=== PATIENT | female | born 1995 | race Caucasian/White ===

== ENCOUNTER 2017-09-08 16:13 | Emergency (ER) | payer BC ==
--- OUTSIDE RECORDS SUMMARY | 2017-09-08 16:34 | XMS REPORT ---
:1995 External Reference #:[id number] Author Organization [facility] Address [address] [place] [address] Phone [phone] Care Team Providers Name Role Phone Mariia Antony M.D. 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 [address] [place] [address] Problems Date Description Provider Status Onset: 08/24/2017 Other specified disorders of Eustachian Hill Valdes MD Active tube, bilateral Onset: 08/24/2017 Acute otitis externa Hill Valdes MD Active Family History Date Family Member(s) Problem(s) Comments General No Current Problems Social History Type Date Description Comments Occupation Student Cigarette Use Never Smoked Cigarettes Cigars Never Smoked Cigars Pipe Never Smoked A Pipe Smokeless Tobacco Never Used Smokeless Tobacco ETOH Use Currently rarely consumes alcohol Allergies, Adverse Reactions, Alerts Date Description Reaction Status Severity Comments 08/24/2017 NKDA active Medications Medication Date Status Form Strength Qnty SIG Indications Ordering Provider Ventolin HFA Active Aerosol 108(90Base) Arpan 0 mcg/Act Mariia Scanlon Dulera Active Aerosol 100-5mcg/Act Unknown 0 Depo-Provera Active Unknown 0 Mupirocin Hx Ointment 2% Unknown 0 - 7 Tretinoin Hx Cream 0.05% Unknown 0 - 7 Pulmicort Hx Aerosol 180mcg/Act Unknown Flexhaler 0 - 7 Vital Signs Date Vital Result Comment 08/24/2017 BP Systolic 129 mmHg BP Diastolic 79 mmHg Heart Rate 75 /min Respiratory Rate 16 /min Weight 95.00 lb Weight in kg's 43.092 Height 61 inches 5'1" Height in cm's 154.9 cm BMI (Body Mass Index) 17.9 kg/m2 Results Description No Information Procedures Description No Information Encounters Type Date Location Provider CPT E/M Dx Office Visit 08/24/2017 9:00a [place] 09/10/07 [place] [address] H60.543 H69.83 Plan of Care 08/24/2017 - Hill Valdes MDH60.543 Acute eczematoid otitis externa, bilateralComments:Patient was advised to use some hydrocortisone ointment to the ear twice a dayH69.83 Other specified disorders of Eustachian tube, bilateral
[2017-09-08 18:24] VITALS: BP 103/64
[2017-09-08] MEDS ORDERED: Amoxicillin/Clavulanate TAB* 875 MG PO ONE (18:32)
--- NOTE | 2017-09-08 18:32 | UC ---
Throat Pain/Nasal Steve HPI - History of Current Complaint Chief Complaint: UCGeneralIllness Stated Complaint: STEVE. Time Seen by Provider: 09/08/17 18:24 Hx Last Menstrual Period: DEPO - Allergies/Home Medications Allergies/Adverse Reactions: Allergies Allergy/AdvReac Type Severity Reaction Status Date / Time No Known Allergies Allergy Verified 06/17/16 12:16 Home Medications: Home Medications Diphenhydramine HCl [Benadryl Allergy 25 MG CAP] 25 mg PO DAILY PRN 09/08/17 [ History Confirmed 09/08/17] Ibuprofen [Ibuprofen 200 MG] 200 mg PO Q6H PRN 09/08/17 [History Confirmed 09/08] Mometasone/Formoter 200/5 MDI* [Dulera 200/5 MDI*] 2 puff INH BID 09/08/17 [ History Confirmed 09/08/17] PMH/Surg Hx/FS Hx/Imm Hx - Surgical History Surgical History: Yes Surgery Procedure, Year, and Place: TONSILLECTOMY - Family History Known Family History: Positive: None Negative: Cardiac Disease, Hypertension, Diabetes - Social History Alcohol Use: Rare Substance Use Type: None Smoking Status (MU): Never Smoked Tobacco Physical Exam Vital Signs: Initial Vital Signs Temp 98 F 09/08/17 18:21 Pulse 70 09/08/17 18:21 Resp 16 09/08/17 18:21 BP 103/64 09/08/17 18:21 Pulse Ox 100 09/08/17 18:21 Discharge - Discharge Plan Referrals: No Primary Care Phys,NOPCP [Primary Care Provider] -
== END 2017-09-08 18:43 | disposition home or self-care (01) ==
LOC: UCCORT 16:13
DX: R07.0 Pain in throat (principal); R09.81 Nasal congestion
CPT/HCPCS: 99212; A9270-GY; G0463

== ENCOUNTER 2018-05-26 12:53 | Emergency (ER) | payer BC ==
[2018-05-26 14:14] VITALS: BP 110/73
--- NOTE | 2018-05-26 14:38 | UC ---
Respiratory Complaint HPI - HPI Summary HPI Summary: ST, nasal congestion, chills, malaise, and painful cough starting 3 nights ago. Noticed swelling in uvula the first morning she was sick. Now coughing a lot, has started her oral prednisone to prevent asthma complications. Also taking albuterol and dulera. 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 No longer being treated. - History of Current Complaint Chief Complaint: UCRespiratory Stated Complaint: URI SYMPTOMS Time Seen by Provider: 05/26/18 13:55 Hx Obtained From: Patient, Family/Er Registrar Hx Last Menstrual Period: Depo-Provera ?: No Onset/Duration: Gradual Onset, Lasting Days Timing: Constant Severity Initially: Mild Severity Currently: Moderate Pain Intensity: 0 Character: Cough: Productive Aggravating Factors: Deep Breaths, Recumbent Position Alleviating Factors: Bronchodilator Associated Signs And Symptoms: Positive: Chills, Wheezing, URI, Nasal Congestion. Negative: Fever - Risk Factors Pulmonary Embolism Risk Factors: Negative Cardiac Risk Factors: Negative - Allergies/Home Medications Allergies/Adverse Reactions: Allergies Allergy/AdvReac Type Severity Reaction Status Date / Time No Known Allergies Allergy Verified 05/26/18 14:03 Home Medications: Home Medications Albuterol 2.5MG/3ML (0.083%)* [Ventolin 2.5 MG/3 ML NEB.[place]*] 2.5 mg INH Q6H PRN 05/26/18 [History Confirmed 05/26/18] Albuterol HFA INHALER* [Ventolin HFA Inhaler*] 1 - 2 puff INH Q4H PRN 05/26/18 [ History Confirmed 05/26/18] Escitalopram (NF) [Lexapro 10 mg (NF)] 10 mg PO DAILY 05/26/18 [History Confirmed 05/26/18] Ibuprofen TAB* [Advil TAB*] 200 - 400 mg PO Q6H PRN 05/26/18 [History Confirmed 05/26/18] Pseudoephedrine TAB* [Sudafed TAB*] 60 mg PO Q6H PRN 05/26/18 [History Confirmed 05/26/18] diPHENhydraMINE PO* [Benadryl PO 25 MG TAB*] 25 mg PO Q6H PRN 05/26/18 [History Confirmed 05/26/18] medroxyPROGESTERone ACETATE* [DEPO-Provera*] 150 mg IM SEE INSTRUCTIONS [History Confirmed 05/26/18] predniSONE TAB* [Deltasone 20 MG TAB*] 20 mg PO DAILY 05/26/18 [History Confirmed 05/26/18] PMH/Surg Hx/FS Hx/Imm Hx - Additional Past Medical History Additional PMH: 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 Respiratory History: Asthma Psychological History: Anxiety - Surgical History Surgical History: Yes Surgery Procedure, Year, and Place: T&A, MD Gloria; Ear Tubes x 3 prior to 2001 - Family History Known Family History: Positive: None Negative: Cardiac Disease, Hypertension, Diabetes - Social History 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, 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 Lives: With Family Alcohol Use: Rare Substance Use Type: Marijuana Substance Use Comment - Amount & Last Used: Rarely & "Fior" Smoking Status (MU): Never Smoked Tobacco Review of Systems Constitutional: Chills, Fatigue Skin: Negative Eyes: Negative ENT: Sore Throat, Nasal Discharge Respiratory: Cough Cardiovascular: Negative Gastrointestinal: Negative Genitourinary: Negative Motor: Negative Neurovascular: Negative Musculoskeletal: Negative Neurological: Negative Psychological: Negative Is Patient Immunocompromised?: No All Other Systems Reviewed And Are Negative: Yes Physical Exam Triage Information Reviewed: Yes Appearance: No Pain Distress, Thin Vital Signs: Initial Vital Signs Temp 98.7 F 05/26/18 13:59 Pulse 104 05/26/18 13:59 Resp 16 05/26/18 13:59 BP 110/73 05/26/18 13:59 Pulse Ox 100 05/26/18 13:59 Vital Signs Reviewed: Yes Eye Exam: Normal Eyes: Positive: Conjunctiva Clear ENT: Positive: Pharynx normal, Nasal congestion, Nasal drainage, TMs normal. Negative: TM bulging Dental Exam: Normal Neck exam: Normal Neck: Positive: Supple, Nontender, No Lymphadenopathy Respiratory: Positive: Chest non-tender, Normal breath sounds, No respiratory distress Cardiovascular: Positive: No Murmur, Pulses Normal, Tachycardia Musculoskeletal Exam: Normal Neurological Exam: Normal Neurological: Positive: Alert Psychological Exam: Normal Skin Exam: Normal UC Diagnostic Evaluation - Laboratory O2 Sat by Pulse Oximetry: 100 Respiratory Course/Dx - Differential Dx/Diagnosis Provider Diagnoses: URI, likely viral Discharge - Sign-Out/Discharge Documenting (check all that apply): Patient Departure All imaging exams completed and their final reports reviewed: No Studies - Discharge Plan Condition: Stable Disposition: HOME Prescriptions: Benzonatate 200 mg PO TID PRN #30 capsule PRN Reason: cough Patient Education Materials: Upper Respiratory Infection (ED), Asthma (DC) Forms: *Work Release Referrals: Mariia Antony MD [Primary Care Provider] - If Needed Additional Instructions: UPPER RESPIRATORY ILLNESS: You have a viral infection of the respiratory passages -- a "cold." This common infection causes nasal congestion, drainage, and often sore throat and cough. It is highly contagious. The disease usually worsens for 3-5 days, then resolves after about 10 to 14 days. It is very common to have some residual cough or nasal congestion for another week or so. There is no "cure" for the viral infection -- it must run its course. If there is a complication, such as bacterial infection in the nose, sinuses, middle ear, or bronchial tubes, antibiotics may be required. The antibiotics won't affect the virus. Drink plenty of fluids. A humidifier may help. An expectorant medication or decongestant may make you more comfortable. Use acetaminophen or ibuprofen for fever or aches. Please call or return if you develop difficulty breathing, fever over 100F , sudden worsening, or failure to improve at all for 4 or more days. [id number] MEDICINES ARE ONLY INTENDED TO GIVE TEMPORARY RELIEF. YOU SHOULD STOP TAKING ANY COUGH OR COLD PREPARATION THAT FAILS TO MAKE YOU FEEL AT LEAST A LITTLE BIT BETTER. - Billing Disposition and Condition Condition: STABLE Disposition: Home
== END 2018-05-26 14:39 | disposition home or self-care (01) ==
LOC: UCCORT 12:53
DX: J06.9 Acute upper respiratory infection, unspecified (principal)
CPT/HCPCS: 99212; G0463

== ENCOUNTER 2018-09-07 20:43 | Emergency (ER) | payer BC ==
--- OUTSIDE RECORDS SUMMARY | 2018-09-07 20:49 | XMS REPORT | Continuity of Care Document ---
:1995 External Reference #:[id number] Author Name Helen LisetdangJORDON Address [address] [place] [address] Care Team Providers Name Role Phone Marv Curiel M.D. Care Team Information Psychiatric Lpn Unavailable Marv Curiel M.D. Primary Care Physician Unavailable Payers Type Date Identification Numbers Payment Provider Subscriber Effective: Policy Number: [id number] [facility]/ James Dennis 2003 Group Name: [employer] [address] [address] PayID: [id number] [place] [address] Advance Directives Description No Information Available Problems Date Description Provider Status Onset: 05/10/2017 Uncomplicated moderate persistent Helen JORDON Malave Active asthma Onset: 08/11/2016 Uncomplicated moderate persistent Mariia Antony M.D. Active asthma Onset: 08/11/2016 Cough Mariia Antony M.D. Active Onset: 08/11/2016 Allergic rhinitis Mariia Antony M.D. 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 Home Environment Mattress is encased in an allergy proof case Home Environment Regular Mattress Home Environment Pillows are polyester Home Environment Pillows are encased in an allergy proof case Home Environment The home is not ai Home Environment The floors are tile Home Environment [place]st [place] Environment Water Source: City Smoke-Free Home is smoke-free Smoke-Free Work is smoke-free Pets None 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 ETOH Use Occasionally consumes alcohol Tobacco Use Start: Unknown Patient has never smoked Recreational Drug Use Denies Drug Use Allergies, Adverse Reactions, Alerts Description No Known Drug Allergies Medications Medication Date Status Form Strength Qnty SIG Indications Ordering Provider Prednisone 08/26/ Active Tablets 20mg 10tab take one Z23 Helen 2017 s pill daily [place], for 5 days [employer] Levalbuterol 11/16/ Active Aerosol 45mcg/Act 15gm 2 puffs J45.40 Helen Tartrate 2018 inhalation [place]rich, q6 hours as [employer] needed Flovent HFA 11/16/ Active Aerosol 110mcg/Act 12gm 2 puff J45.40 Helen 2018 inhalation [place], twice a day [employer] Albuterol / Active Nebulizer (5mg/ML) use via Unknown Sulfate 0000 0.5% nebulizer every 4-6 hours as needed for wheeze, chest tightness, cough, shortness of breath Depo-Provera / Active Suspension 150mg/ml Unknown 0000 Immunizations CPT Code Status Date Vaccine Lot # [id number] Given Unknown Influenza Vaccine 60406 Given Unknown Influenza Vaccine Vital Signs Date Vital Result Comment 08/26/2018 10:24am Height 61.5 inches 5'1.50" Weight 101.00 lb Weight 45.814 kg Respiratory Rate 16 /min Heart Rate 68 /min O2 % BldC Oximetry 98 % BP Systolic 115 mmHg BP Diastolic 77 mmHg Asthma Control Test 23 Fractional Exhaled Nitric Oxide 7 BMI (Body Mass Index) 18.8 kg/m2 07/19/2018 11:36am Height 61.5 inches 5'1.50" Weight 102.00 lb Weight 46.267 kg Respiratory Rate 18 /min Heart Rate 80 /min O2 % BldC Oximetry 97 % BP Systolic 95 mmHg BP Diastolic 61 mmHg Asthma Control Test 24 Fractional Exhaled Nitric Oxide 50 BMI (Body Mass Index) 19.0 kg/m2 11/16/2017 8:59am Height 61.5 inches 5'1.50" Weight 93.00 lb Weight 42.185 kg Respiratory Rate 20 /min Heart Rate 76 /min O2 % BldC Oximetry 98 % BP Systolic 110 mmHg BP Diastolic 61 mmHg Asthma Control Test 22 BMI (Body Mass Index) 17.3 kg/m2 08/08/2017 8:36am Height 61.5 inches 5'1.50" Weight 94.00 lb Weight 42.638 kg Respiratory Rate 16 /min Heart Rate 79 /min O2 % BldC Oximetry 98 % BP Systolic 102 mmHg BP Diastolic 64 mmHg Asthma Control Test 20 BMI (Body Mass Index) 17.5 kg/m2 06/06/2017 8:52am Height 60.75 inches 5'0.75" Weight 99.00 lb Weight 44.906 kg Respiratory Rate 20 /min Heart Rate 73 /min O2 % BldC Oximetry 98 % BP Systolic 108 mmHg BP Diastolic 61 mmHg BMI (Body Mass Index) 18.9 kg/m2 05/10/2017 9:25am Height 60.75 inches 5'0.75" Weight 99.00 lb Weight 44.906 kg Respiratory Rate 18 /min Heart Rate 102 /min O2 % BldC Oximetry 97 % BP Systolic 105 mmHg BP Diastolic 70 mmHg Asthma Control Test 20 BMI (Body Mass Index) 18.9 kg/m2 10/20/2016 3:14pm Height 60.75 inches 5'0.75" Weight 100.00 lb Weight 45.360 kg Respiratory Rate 16 /min Heart Rate 79 /min O2 % BldC Oximetry 98 % BP Systolic 109 mmHg BP Diastolic 67 mmHg Asthma Control Test 19 BMI (Body Mass Index) 19.0 kg/m2 Body Mass Index Percentile 3 % 08/11/2016 1:47pm Height 60.75 inches 5'0.75" Weight 99.00 lb Weight 44.906 kg Respiratory Rate 20 /min Heart Rate 69 /min O2 % BldC Oximetry 98 % BP Systolic 117 mmHg BP Diastolic 77 mmHg Asthma Control Test 18 BMI (Body Mass Index) 18.9 kg/m2 Body Mass Index Percentile 3 % Results Test Date Facility Test Result H/L Range Note Laboratory test 08/11/2016 [facility] Immunoglobulin M 0 finding (Igm) Procedures Date Code Description Status 08/26/2018 85104 Nitric Oxide Gas Determination Completed 08/26/2018 43794 Pre PFT Completed 07/19/2018 58254 Nitric Oxide Gas Determination Completed 07/19/2018 77285 Pre PFT Completed 11/16/2017 35069 Pre PFT Completed 08/08/2017 34290 Nitric Oxide Gas Determination Completed 08/08/2017 43361 Pre PFT Completed 06/06/2017 07159 Pre PFT Completed 06/06/2017 80197 Pre PFT Completed 05/10/2017 49157 Pre PFT Completed 10/20/2016 12051 Pre PFT Completed 08/11/2016 28341 Pulmonary Function Test Completed Encounters Type Date Location Provider Dx Diagnosis Office Visit 08/26/2018 Hans Malave Z23 Encounter for 10:00a [employer] immunization Office Visit 07/19/2018 Taylor Germain.40 Moderate persistent 11:20a [employer] asthma, uncomplicated J30.9 Allergic rhinitis, unspecified R05 Cough Office Visit 11/16/2017 8:40a Ernestine Acuna45.40 Moderate persistent M.D. asthma, uncomplicated J30.9 Allergic rhinitis, unspecified Office Visit 08/08/2017 8:40a Ernestine Acuna45.40 Moderate persistent M.D. asthma, uncomplicated J30.9 Allergic rhinitis, unspecified Office Visit 06/06/2017 9:00a Ernetsine Germain45.40 Moderate persistent [employer] asthma, uncomplicated J30.9 Allergic rhinitis, unspecified Office Visit 05/10/2017 9:20a Ernestine Germain45.40 Moderate persistent [employer] asthma, uncomplicated J30.9 Allergic rhinitis, unspecified R05 Cough Office Visit 10/20/2016 3:40p Ernestine Acuna45.40 Moderate persistent M.D. asthma, uncomplicated J30.9 Allergic rhinitis, unspecified J45.40 Moderate persistent asthma, uncomplicated R05 Cough Office Visit 08/11/2016 1:20p Valentine Acuna.Dona Allergic rhinitis, M.D. unspecified J45.40 Moderate persistent asthma, uncomplicated R05 Cough Plan of Treatment Future Appointment(s):02/24/2019 11:00 am - JORDON Lou at [id number] - ARGELIA [id number] Encounter for immunizationNew Medication: Prednisone 20 mgFollow up:6 months with pre PFT for possible allergy testingRecommendations:Continue all medications as prescribed.Refrain from wearing perfumes/scented colognes while visitingour office. continue Xopenex 2 puffs every 4 hours as needed for cough, shortness of breath or chest tightness. Call if using >2x/week continue the Flovent 2 puff twice daily; rinse mouth after use; okay to increase 2 puffs twice daily with colds/URIs. PFT done today. Pulmonary Function Studies are done by exhaling (blowing) into a machine to detect an asthmatic condition or other lung problem. Results reviewed and are normal * TAKE NO MEDICATIONS CONTAINING ANTIHISTAMINES (72hrs ) PRIOR TO TESTING VISIT.Stop oral antihistamines 72 hours before your skin testing. This includes but is not limited to: Benadryl, Chlortrimeton, Claritin/ Loratadine, Rosy/Fexofenadine, Zyrtec/Cetirizine, Xyzal/Levocetirizine and Clarinex/Desloratadine.
[2018-09-07 20:52] VITALS: BP 115/61
--- NOTE | 2018-09-07 21:11 | UC ---
Hand/Wrist HPI - HPI Summary HPI Summary: 23-year-old woman comes to clinic today with a chief complaint of left index finger injury. 3 days ago she struck the dorsum of her left index finger between the DIP and PIP. It was painful right away. She taped it which decreased the pain. Crease use increases the pain. There is no skin break. Patient has full range of motion of the finger and full strength. The pain is actually increased slightly since the injury. - History Of Current Complaint Chief Complaint: UCUpperExtremity Stated Complaint: FINGER INJURY Time Seen by Provider: 09/07/18 20:46 Hx Last Menstrual Period: DEPOPROVERA Pain Intensity: 2 - Allergies/Home Medications Allergies/Adverse Reactions: Allergies Allergy/AdvReac Type Severity Reaction Status Date / Time No Known Allergies Allergy Verified 09/07/18 20:52 Home Medications: Home Medications Fluticasone Propionate [Flovent Hfa] 2 puff IH BID 09/07/18 [History Confirmed 09/07/18] PMH/Surg Hx/FS Hx/Imm Hx Previously Healthy: Yes - Surgical History Surgical History: Yes Surgery Procedure, Year, and Place: T&A, MD [place]; Ear Tubes x 3 prior to 2001 - Family History Known Family History: Positive: None Negative: Cardiac Disease, Hypertension, Diabetes - Social History Alcohol Use: Rare Substance Use Type: Marijuana Substance Use Comment - Amount & Last Used: Rarely & "Fior" Smoking Status (MU): Never Smoked Tobacco Review of Systems All Other Systems Reviewed And Are Negative: Yes Constitutional: Positive: Negative Skin: Positive: Negative Eyes: Positive: Negative ENT: Positive: Negative Respiratory: Positive: Negative Cardiovascular: Positive: Negative Gastrointestinal: Positive: Negative Motor: Positive: Negative Neurovascular: Positive: Negative Musculoskeletal: Positive: Other: - see hpi Neurological: Positive: Negative Psychological: Positive: Negative Is Patient Immunocompromised?: No Physical Exam Triage Information Reviewed: Yes Appearance: Well-Appearing, No Pain Distress, Well-Nourished Vital Signs: Initial Vital Signs Temp 98.6 F 09/07/18 20:48 Pulse 71 09/07/18 20:48 Resp 18 09/07/18 20:48 BP 115/61 09/07/18 20:48 Pulse Ox 98 09/07/18 20:48 Vital Signs Reviewed: Yes Eye Exam: Normal Eyes: Positive: Conjunctiva Clear Neck exam: Normal Neck: Positive: Supple Respiratory: Positive: No respiratory distress Musculoskeletal: Positive: Other: - Left index finger is tender to palpation on the dorsum between the DIP and PIP. Finger has full range of motion with flexion and extension at all the joints. No sensation deficit normal capillary refill no skin break. Neurological Exam: Normal Neurological: Positive: Alert, Muscle Tone Normal Psychological Exam: Normal Psychological: Positive: Age Appropriate Behavior Skin Exam: Normal Hand/Wrist Course/Dx - Course Course Of Treatment: On examination the index finger range of motion and strength is intact. On examination I do not find any complete tendon injury. I reviewed the x-rays with the patient. I do not see any fracture. Final radiologist reading is pending. As the contusion injury is to the extensor tendon between the index fingers PIP and DIP a fingers left keeping the DIP and extension was placed by nursing. Neurovascularly intact after placement of the finger splint. The plan is ice immobilization ibuprofen and if not completely improved follow-up with orthopedics. - Differential Dx/Diagnosis Provider Diagnosis: Contusion of left index finger Discharge - Sign-Out/Discharge Documenting (check all that apply): Patient Departure All imaging exams completed and their final reports reviewed: No - Discharge Plan Condition: Stable Disposition: HOME Patient Education Materials: Finger Sprain (ED) Referrals: Mariia Antony MD [Primary Care Provider] - Macho Posadas MD [Medical Doctor] - Additional Instructions: FOLLOW UP WITH ORTHOPEDICS IF NOT COMPLETELY IMPROVED. GET RECHECKED FOR ANY WORSENING OF YOUR CONDITION OR QUESTIONS OR CONCERNS. THE FINAL RADIOLOGIST READING OF YOUR X-RAY WILL OCCUR TOMORROW. IF THERE IS ANY CHANGE IN THE X-RAY READING, WE WILL CALL YOU. - Billing Disposition and Condition Condition: STABLE Disposition: Home
--- NOTE | 2018-09-08 08:53 | UC ---
- Progress Note Progress Note: Final x-ray reading reviewed. Agrees with preliminary reading by provider. No change in plan of care. Course/Dx - Diagnoses Provider Diagnoses: Contusion of left index finger Discharge - Sign-Out/Discharge Documenting (check all that apply): Post-Discharge Follow Up All imaging exams completed and their final reports reviewed: Yes - Discharge Plan Condition: Stable Disposition: HOME Patient Education Materials: Finger Sprain (ED) Referrals: Macho Posadas MD [Medical Doctor] - Mariia Antony MD [Primary Care Provider] - Additional Instructions: FOLLOW UP WITH ORTHOPEDICS IF NOT COMPLETELY IMPROVED. GET RECHECKED FOR ANY WORSENING OF YOUR CONDITION OR QUESTIONS OR CONCERNS. THE FINAL RADIOLOGIST READING OF YOUR X-RAY WILL OCCUR TOMORROW. IF THERE IS ANY CHANGE IN THE X-RAY READING, WE WILL CALL YOU. - Billing Disposition and Condition Condition: STABLE Disposition: Home
== END 2018-09-07 21:10 | disposition home or self-care (01) ==
LOC: UCEAST 20:43
DX: S60.022A Contusion of left index finger without damage to nail, initial encounter (principal); W22.8XXA Striking against or struck by other objects, initial encounter; Y92.89 Other specified places as the place of occurrence of the external cause
CPT/HCPCS: 73140; 99212; G0463

== ENCOUNTER 2018-10-24 16:03 | Emergency (ER) | payer BC ==
[2018-10-24 16:13] VITALS: BP 117/76
--- NOTE | 2018-10-24 16:58 | UC ---
Headache HPI - HPI Summary HPI Summary: 23-year-old woman comes in with a chief complaint of a headache for 4 days. She does have some sinus congestion. Headache is frontal and bitemporal. She felt says it feels tight. Light bothers her eyes a little bit but not much. No fevers or chills. No neck pain. Otherwise no change in vision or speech weakness or numbness. Headache on average is around 3 out of 10. She is able sleep does not wake her from sleep. She did take some ibuprofen that did help with the headache. - History Of Current Complaint Chief Complaint: UCHeadache Stated Complaint: HEADACHE Time Seen by Provider: 10/24/18 16:42 Hx Last Menstrual Period: BC Pain Intensity: 3 - Allergies/Home Medications Allergies/Adverse Reactions: Allergies Allergy/AdvReac Type Severity Reaction Status Date / Time No Known Allergies Allergy Verified 10/24/18 16:13 PMH/Surg Hx/FS Hx/Imm Hx Previously Healthy: Yes - Surgical History Surgical History: Yes Surgery Procedure, Year, and Place: T&A, MD [facility]; Ear Tubes x 3 prior to 2001 - Family History Known Family History: Positive: None Negative: Cardiac Disease, Hypertension, Diabetes - Social History Alcohol Use: Rare Substance Use Type: Marijuana Substance Use Comment - Amount & Last Used: less than 4 times a week Smoking Status (MU): Never Smoked Tobacco Review of Systems All Other Systems Reviewed And Are Negative: Yes Constitutional: Positive: Negative Skin: Positive: Negative Eyes: Positive: Negative ENT: Positive: Nasal Discharge, Sinus Congestion Respiratory: Positive: Negative Cardiovascular: Positive: Negative Gastrointestinal: Positive: Negative Motor: Positive: Negative Neurovascular: Positive: Negative Musculoskeletal: Positive: Negative Neurological: Positive: Headache Psychological: Positive: Negative Is Patient Immunocompromised?: No Physical Exam Triage Information Reviewed: Yes Appearance: Well-Appearing, No Pain Distress, Well-Nourished Vital Signs: Initial Vital Signs Temp 98.8 F 10/24/18 16:07 Pulse 86 10/24/18 16:07 Resp 12 10/24/18 16:07 BP 117/76 10/24/18 16:07 Pulse Ox 100 10/24/18 16:07 Vital Signs Reviewed: Yes Eye Exam: Normal Eyes: Positive: Conjunctiva Clear ENT: Positive: Pharynx normal, Nasal congestion, TMs normal Neck exam: Normal Neck: Positive: Supple Respiratory: Positive: Lungs clear, Normal breath sounds, No respiratory distress Cardiovascular: Positive: RRR Musculoskeletal Exam: Normal Musculoskeletal: Positive: Strength Intact, ROM Intact Neurological Exam: Normal Neurological: Positive: Alert, Muscle Tone Normal Psychological Exam: Normal Psychological: Positive: Age Appropriate Behavior Skin Exam: Normal Headache Course/Dx - Course Course Of Treatment: With the headache being frontal and temporal and with the sinus congestion we will treat for sinusitis. We talked about saline nasal spray and hot steamy drinking plenty of fluids. At this time is no danger signs on exam or by history for her headache. We did discuss if things got worse she needs to get reevaluated. - Differential Dx/Diagnosis Provider Diagnosis: Headache Discharge - Sign-Out/Discharge Documenting (check all that apply): Patient Departure All imaging exams completed and their final reports reviewed: No Studies - Discharge Plan Condition: Stable Disposition: HOME Prescriptions: Amoxicillin/Clavulanate TAB* [Augmentin TAB 875*] 875 mg PO BID #20 tab Patient Education Materials: Acute Headache (ED) Referrals: Mariia Antony MD [Primary Care Provider] - Additional Instructions: FOLLOW UP WITH YOUR DOCTOR IF NOT COMPLETELY IMPROVED. GET RECHECKED FOR ANY WORSENING OF YOUR CONDITION; PAIN, WEAKNESS, NUMBNESS, CHANGES IN VISION OR SPEECH OR QUESTIONS OR CONCERNS. - Billing Disposition and Condition Condition: STABLE Disposition: Home
== END 2018-10-24 17:10 | disposition home or self-care (01) ==
LOC: UCEAST 16:03
DX: R51 Headache (principal); J32.9 Chronic sinusitis, unspecified
CPT/HCPCS: 99212; G0463

== ENCOUNTER 2019-03-16 13:28 | Emergency (ER) | payer BC ==
--- OUTSIDE RECORDS SUMMARY | 2019-03-16 13:34 | XMS REPORT | Continuity of Care Document ---
:1995 External Reference #:[id number] Author Name JORDON Lou Address [address] [place] [address] Care Team Providers Name Role Phone Marv Curiel M.D. Care Team Information Briquette Molder Unavailable Marv Curiel M.D. Primary Care Physician Unavailable Payers Date Identification Numbers Payment Provider Subscriber Effective: 2003 Policy Number: [id number] [facility]/ [facility] Name: [facility] [address] [address] PayID: [id number] [place] [address] Problems Active Problems Provider Date Uncomplicated moderate persistent asthma Helen JORDON Malave Onset: 2016 Uncomplicated moderate persistent asthma Mariia Antony M.D. Onset: 08/11 Cough Mariia Antony M.D. Onset: 08/11/2016 Allergic rhinitis Mariia Antony M.D. Onset: 08/11/2016 Family History Date Family Member(s) Observation Comments General Hypertension General Thyroid Disease Father [...] Student [employer] ETOH Use Occasionally consumes alcohol Recreational Drug Use Denies Drug Use Tobacco Use Start: Unknown Patient has never smoked Tobacco Use Start: Unknown smokes tyshawn Allergies, Adverse Reactions, Alerts Description No Known Drug Allergies Medications Active Medications SIG Qnty Indications Ordering Provider Date Levalbuterol Tartrate 2 puffs inhalation 15gm J45.40 Helen Malave, 05/2018 q6 hours as needed [facility] 45mcg/Act Aerosol Flovent HFA 2 puff inhalation 12gm J45.40 [facility], 11/16/2017 110mcg/Act twice a day [facility] Aerosol Albuterol Sulfate use via nebulizer Unknown every 4-6 hours as (5mg/ML) 0.5% needed for wheeze, Nebulizer chest tightness, cough, shortness of breath Depo-Provera Unknown 150mg/ml Suspension Immunizations CPT Code Status Date Vaccine Lot # [id number] Given Unknown Influenza Vaccine 08823 Given Unknown Influenza Vaccine Vital Signs Date Vital Result Comment 02/24/2019 11:08am Height 61.5 inches 5'1.50" Weight 105.00 lb Weight 47.628 kg Respiratory Rate 18 /min Heart Rate 90 /min O2 % BldC Oximetry 97 % BP Systolic 110 mmHg BP Diastolic 73 mmHg Asthma Control Test 24 Fractional Exhaled Nitric Oxide 25 BMI (Body Mass Index) 19.5 kg/m2 08/26/2018 10:24am Height 61.5 inches 5'1.50" Weight [...] finding (Igm) Procedures Date Code Description Status 02/24/2019 80106 Nitric Oxide Gas Determination Completed 02/24/2019 59391 Skin Test Scratch # Of Units ____ Completed 08/26/2018 45465 Nitric Oxide Gas Determination Completed 08/26/2018 70202 Pre PFT Completed 07/19/2018 41016 Nitric Oxide Gas Determination Completed 07/19/2018 05621 Pre PFT Completed 11/16/2017 84655 Pre PFT Completed 08/08/2017 75474 Nitric Oxide Gas Determination Completed 08/08/2017 88626 Pre PFT Completed 06/06/2017 50624 Pre PFT Completed 06/06/2017 43012 Pre PFT Completed 05/10/2017 35361 Pre PFT Completed 10/20/2016 50129 Pre PFT Completed 08/11/2016 95972 Pulmonary Function Test Completed Encounters Type Date Location Provider Dx Diagnosis Office Visit 02/24/2019 Ernestine Germain45.40 Moderate persistent 11:00a [facility] asthma, uncomplicated J30.9 Allergic rhinitis, unspecified R05 Cough Office Visit 08/26/2018 10:00a Hans Malave Z23 Encounter for [facility] immunization J45.40 Moderate persistent asthma, uncomplicated J30.9 Allergic rhinitis, unspecified R05 Cough Office Visit 07/19/2018 11:20a Ernestine Germain45.40 Moderate persistent [facility] asthma, uncomplicated J30.9 Allergic rhinitis, unspecified R05 Cough Office Visit 11/16/2017 8:40a Ernestine Acuna45.40 Moderate persistent M.D. asthma, uncomplicated J30.9 Allergic rhinitis, unspecified Office Visit 08/08/2017 8:40a Ernestine Acuna45.40 Moderate persistent M.D. asthma, uncomplicated J30.9 Allergic rhinitis, unspecified Office Visit 06/06/2017 9:00a Ernestine Germain45.40 Moderate persistent [facility] asthma, uncomplicated J30.9 Allergic rhinitis, unspecified Office Visit 05/10/2017 9:20a Ernestine Germain45.40 Moderate persistent [facility] asthma, uncomplicated J30.9 Allergic rhinitis, unspecified R05 Cough Office Visit 10/20/2016 3:40p Ernestine Acuna45.40 Moderate persistent M.D. asthma, uncomplicated J30.9 Allergic rhinitis, unspecified J45.40 Moderate persistent asthma, uncomplicated R05 Cough Office Visit 08/11/2016 1:20p [place] Mariia Antony, J30.9 Allergic rhinitis, M.D. unspecified J45.40 Moderate persistent asthma, uncomplicated R05 Cough Plan of Treatment Future Appointment(s):08/25/2019 10:20 am - JORDON Lou at [id number] - BARRIE Lou-CJ45.40 Moderate persistent asthma, [id number] Allergic rhinitis, [id number] CoughFollow up:6 months with JHONY and pre PFTRecommendations:Continue all medications as prescribed.Refrain from wearing perfumes/scented colognes while visitingour office. continue Xopenex 2 puffs every 4 hours as needed for cough, shortness of breath or chest tightness. Call if using >2x/week continue the Flovent 2 puff twice daily; rinse mouth after use; okay to increase 2 puffs twice daily with colds/URIs. PFT done today. Pulmonary Function Studiesare done by exhaling (blowing) into a machine to detect an asthmatic condition or other lung problem. Results reviewed and are normal Discussed the three ways in which allergies are managed: (1) avoidance measures; (2) medications; (3) allergy immunotherapy. Discussed environmental controls. -Dust mite control barriers are recommended for mattress and pillows. Make sure the product specifies a pore size rating of 2-5 microns. Bigger and unspecified pore sizes may not be effective. -Wash all bedding in hot water once weekly. -Keep bedroom humidity below 50%. Dust mites thrive well in high humidity. Not interested in allergy shots now, maybe later
[2019-03-16 13:39] VITALS: BP 94/60
--- NOTE | 2019-03-16 13:50 | UC ---
Bite Injury/Animal HPI - HPI Summary HPI Summary: cat bite to right index finger--occured last night--has had continued pain and swelling c/o decrease motion dip-does not believe the skin was broke - History of Current Complaint Chief Complaint: UCBiteInjury Stated Complaint: CAT BITE Time Seen by Provider: 03/16/19 13:35 Hx Obtained From: Patient Hx Last Menstrual Period: iud ?: No Pain Intensity: 4 Pain Scale Used: 0-10 Numeric Onset/Duration: Sudden Onset, Lasting Days - 1, Still Present Type of Bite: Animal Has Animal Been Immunized?: Yes Aggravating Factor(s): Nothing Alleviating Factor(s): Nothing Associated Signs And Symptoms: Positive: Swelling, Limited ROM Hx of Bite: Unprovoked Animal Available for Observation: Yes - Allergies/Home Medications Allergies/Adverse Reactions: Allergies Allergy/AdvReac Type Severity Reaction Status Date / Time No Known Allergies Allergy Verified 03/16/19 13:40 PMH/Surg Hx/FS Hx/Imm Hx Previously Healthy: No Respiratory History: Asthma - Surgical History Surgical History: Yes Surgery Procedure, Year, and Place: T&A, MD [facility]; Ear Tubes x 3 prior to 2001 - Family History Known Family History: Positive: None Negative: Cardiac Disease, Hypertension, Diabetes - Social History 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, 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 Lives: With Family Alcohol Use: Rare Substance Use Type: Marijuana Substance Use Comment - Amount & Last Used: less than 4 times a week Smoking Status (MU): Never Smoked Tobacco Review of Systems All Other Systems Reviewed And Are Negative: Yes Constitutional: Positive: Negative Skin: Positive: Negative Eyes: Positive: Negative ENT: Positive: Negative Respiratory: Positive: Negative Cardiovascular: Positive: Negative Gastrointestinal: Positive: Negative Genitourinary: Positive: Negative Motor: Positive: Decreased ROM - right index dip Neurovascular: Positive: Negative Musculoskeletal: Positive: Arthralgia - right index finger Neurological: Positive: Negative Psychological: Positive: Negative Is Patient Immunocompromised?: No Physical Exam Triage Information Reviewed: Yes Appearance: Well-Appearing, No Pain Distress, Well-Nourished Vital Signs: Initial Vital Signs Temp 98 F 03/16/19 13:35 Pulse 80 03/16/19 13:35 Resp 18 03/16/19 13:35 BP 94/60 03/16/19 13:35 Pulse Ox 100 03/16/19 13:35 Vital Signs Reviewed: Yes Eye Exam: Normal Eyes: Positive: Conjunctiva Clear ENT Exam: Normal ENT: Positive: Normal ENT inspection, Hearing grossly normal. Negative: Trismus , Muffled voice, Hoarse voice Dental Exam: Normal Neck exam: Normal Neck: Positive: Supple, Nontender, No Lymphadenopathy Respiratory Exam: Normal Respiratory: Positive: Chest non-tender, Normal breath sounds, No respiratory distress, No accessory muscle use Cardiovascular Exam: Normal Cardiovascular: Positive: RRR, Pulses Normal, Brisk Capillary Refill Musculoskeletal Exam: Other Musculoskeletal: Positive: Strength Intact, No Edema, ROM Limited @ - right index finger dip Neurological Exam: Normal Neurological: Positive: Alert, Muscle Tone Normal Psychological Exam: Normal Psychological: Positive: Normal Response To Family Skin Exam: Normal Diagnostics - Radiology No standard instances Radiology Interpretation Completed By: Radiologist - no acute process Bite Injury Course/Dx - Course Course Of Treatment: boostrix, augmentin, warm soaks, follow with hand surgeon this week - Differential Dx/Diagnosis Provider Diagnosis: Cat bite of right hand including fingers with infection Discharge - Sign-Out/Discharge Documenting (check all that apply): Patient Departure All imaging exams completed and their final reports reviewed: Yes - Discharge Plan Condition: Stable Disposition: HOME Prescriptions: Amoxicillin/Clavulanate TAB* [Augmentin TAB 875*] 875 mg PO BID #20 tab Patient Education Materials: Animal Bite (ED), Warm Compress or Soak (ED) Referrals: Katty Love MD [Medical Doctor] - 3 Days - Billing Disposition and Condition Condition: STABLE Disposition: Home - Attestation Statements Provider Attestation: I was available for consult. This patient was seen by the ZEFERINO. The patient was not presented to , seen by or examined by ks -Jordan Barcenas MD
[2019-03-16] MEDS ORDERED: Tetan/Diph/Pertus SYR(Tdap)* 0.5 ML SYR(BOOSTRIX) use SYR IM ONE (14:00)
== END 2019-03-16 14:13 | disposition home or self-care (01) ==
LOC: UCEAST 13:28
DX: S61.250A Open bite of right index finger without damage to nail, initial encounter (principal); L08.9 Local infection of the skin and subcutaneous tissue, unspecified; W55.01XA Bitten by cat, initial encounter; Y92.019 Unspecified place in single-family (private) house as the place of occurrence of the external cause; J45.909 Unspecified asthma, uncomplicated
CPT/HCPCS: 73140; 90471; 90715; 99213; G0463

== ENCOUNTER 2019-05-20 17:05 | Emergency (ER) | payer BC ==
[2019-05-20 17:17] VITALS: BP 142/117
--- NOTE | 2019-05-20 17:45 | UC ---
Abdominal Pain Female HPI - HPI Summary HPI Summary: GRADUAL ONSET 1-2 HOURS AGO OF SHARP DIFFUSE ABDOMINAL PAIN THAT RADIATES UP HER SIDES AND INTO HER BACK. REPORTS SIMILAR EPISODES SEVERAL TIMES IN THE PAST MOST RECENTLY SOMETIME IN THE LAST YEAR WHICH RESOLVED AFTER A FEW DAYS WITH REST AND OTC MEDICATIONS. STATES SHE CAME IN THIS TIME BECAUSE SHE HAD TO LEAVE FROM WORK. NO URINARY SYMPTOMS. NO FEVER. NO NAUSEA/VOMITING/DIARRHEA. - History of Current Complaint Chief Complaint: UCAbdominalPain Stated Complaint: ABDOMINAL PAIN Time Seen by Provider: 05/20/19 17:28 Hx Obtained From: Patient Hx Last Menstrual Period: iud Onset/Duration: Gradual Onset, Lasting Hours, Still Present Timing: Constant Severity Initially: Moderate Severity Currently: Moderate Pain Intensity: 7 Pain Scale Used: 0-10 Numeric Location: Diffuse Radiates: Yes Radiates to: Back, Flank Character: Sharp Aggravating Factor(s): Other: - standing straight up Alleviating Factor(s): Position Associated Signs and Symptoms: Positive: Back Pain. Negative: Fever, Constipation, Blood in Stool, Urinary Symptoms, Decreased Appetite, Nausea, Vomiting, Diarrhea Allergies/Adverse Reactions: Allergies Allergy/AdvReac Type Severity Reaction Status Date / Time No Known Allergies Allergy Verified 05/20/19 17:17 PMH/Surg Hx/FS Hx/Imm Hx Respiratory History: Asthma Psychological History: Depression - Surgical History Surgical History: Yes Surgery Procedure, Year, and Place: T&AGloria MD; Ear Tubes x 3 prior to 2001 - Family History Known Family History: Positive: None Negative: Cardiac Disease, Hypertension, Diabetes - Social History Alcohol Use: Occasionally Substance Use Type: Marijuana Substance Use Comment - Amount & Last Used: less than 4 times a week Smoking Status (MU): Never Smoked Tobacco Review of Systems All Other Systems Reviewed And Are Negative: Yes Constitutional: Positive: Negative Respiratory: Positive: Negative Cardiovascular: Positive: Negative Gastrointestinal: Positive: Abdominal Pain. Negative: Vomiting, Diarrhea, Nausea Genitourinary: Positive: Negative Physical Exam Triage Information Reviewed: Yes Appearance: Well-Appearing, No Pain Distress, Well-Nourished Vital Signs: Initial Vital Signs Temp 98.2 F 05/20/19 17:14 Pulse 82 05/20/19 17:14 Resp 18 05/20/19 17:14 BP 142/117 05/20/19 17:14 Pulse Ox 100 05/20/19 17:14 Laboratory Tests 05/20/19 05/20/19 17:30 17:32 POC Urine Color Yellow POC Urine Clarity Clear POC Urine pH 7.0 POC Ur Specif [place] 1.020 POC Urine Protein Negative POC Ur Glucose (UA) Negative POC Urine Ketones Negative POC Urine Blood Negative POC Urine Nitrite Negative POC Urine Bilirubin Negative POC Urine Urobilinogen 0.2 POC U Leukocyte Esteras Negative POC Ur Test Negative Vital Signs Reviewed: Yes Eyes: Positive: Conjunctiva Clear ENT: Positive: Hearing grossly normal Neck: Positive: Supple, Nontender, No Lymphadenopathy Respiratory Exam: Normal Cardiovascular Exam: Normal Abdomen Description: Positive: Soft, CVA Tenderness (R) - equivocal, CVA Tenderness (L) - equivocal, Other: - Mildly tender diffusely. No rebound or rigidity. Negative: Distended, Guarding Bowel Sounds: Positive: Present Musculoskeletal: Positive: No Edema Neurological: Positive: Alert Psychological: Positive: Age Appropriate Behavior Skin: Negative: Rashes Diagnostics - Radiology CT ABD/PELVIS W/O CONTRAST Radiology Interpretation Completed By: Radiologist Summary of Radiographic Findings: 1. No visible renal, ureteral or bladder calculi. 2. No other acute CT pathology. Abd Pain Female Course/Dx - Course Course Of Treatment: CT SCAN UNREMARKABLE TODAY. URINE TESTS UNREMARKABLE TODAY. PATIENT STATES HER PAIN ACTUALLY RESOLVED WHILE SITTING IN THE URGENT CARE. I ADVISED HER TO GO TO THE ER WITHOUT FAIL IF HER SYMPTOMS RETURN. SHE WILL FOLLOW-UP AN OUTPATIENT WITH GI FOR FURTHER EVALUATION. CBC, CMP AND TSH DRAWN TODAY. - Differential Dx/Diagnosis Provider Diagnosis: Diffuse abdominal pain Discharge ED - Sign-Out/Discharge Documenting (check all that apply): Patient Departure All imaging exams completed and their final reports reviewed: Yes - Discharge Plan Condition: Stable Disposition: HOME Patient Education Materials: Abdominal Pain (ED) Referrals: Mariia Antony MD [Primary Care Provider] - If Needed Additional Instructions: UNCLEAR ETIOLOGY OF YOUR SYMPTOMS TODAY. CT SCAN TODAY UNREMARKABLE. URINE TEST UNREMARKABLE. BLOOD COUNT, METABOLIC PANEL AND THYROID TESTS DRAWN TODAY FOR FURTHER EVALUATION OF YOUR DISCOMFORT. GO TO THE ER WITHOUT FAIL IF YOUR SYMPTOMS WORSEN. FOLLOW-UP WITH A KIDNEY PULLER WE DISCUSSED. [facility] Address: [facility] [address], [place] [address] - Billing Disposition and Condition Condition: STABLE Disposition: Home
[2019-05-21 11:55] LABS: ABS Eosinophils 0.3 10^3/ul (0-0.6); ABS Lymphocytes 1.9 10^3/ul (1.0-4.8); ABS Monocytes 0.3 10^3/ul (0-0.8); ABS Neutrophils 2.5 10^3/ul (1.5-7.7); Hematocrit 41 % (35-47); Hemoglobin 13.9 g/dL (12.0-16.0); Lymphocyte % 37.7 %; Mean Corpuscular HGB Conc 34 g/dL (31-36); Mean Corpuscular Hemoglobin 31 pg (27-31); Mean Corpuscular Volume 91 fL (80-97); Mean Platelet Volume 9.6 fL (7.4-10.4); Nucleated Red Blood Cells % 0.2; Platelet Count 220 10^3/uL (150-450); Red Blood Count 4.56 10^6 /uL (3.70-4.87); Red Cell Distribution Width 13 % (10-15); White Blood Count 5.2 10^3/uL (3.5-10.8)
[2019-05-21 12:00] LABS: Albumin 4.4 g/dL (3.2-5.2); Calcium 9.5 mg/dL (8.6-10.3); Potassium 4.2 mmol/L (3.5-5.0); Total Bilirubin 0.4 mg/dL (0.2-1.0)
[2019-05-21 12:06] LABS: Albumin/Globulin Ratio 2.3 (1-3); BUN/Creatinine Ratio 14.9 (8-20); EGFR African American 118.7 (>60); EGFR Non-African American 98.1 (>60); Globulin 1.9 g/dL (2-4); Total Protein 6.3 g/dL (6.4-8.9)
[2019-05-21 12:32] LABS: TSH (Thyroid Stimulating Horm) 2.83 mcIU/mL (0.34-5.60)
== END 2019-05-20 18:40 | disposition home or self-care (01) ==
LOC: UCEAST 17:05
DX: R10.84 Generalized abdominal pain (principal); J45.909 Unspecified asthma, uncomplicated; F32.9 Major depressive disorder, single episode, unspecified
CPT/HCPCS: 36415; 74176; 80053; 81003; 84443; 84702; 85025; 99211; G0463